=== PATIENT | female | born 2005 | race African-American/Black ===

== ENCOUNTER 2023-01-26 07:20 | Emergency (ER) | payer SELFPAY ==
--- OUTSIDE RECORDS SUMMARY | 2023-01-26 07:23 | XMS REPORT | Continuity of Care Document ---
:2005 Author Organization [facility] t Address [address] [facility] [address] [place] [address] Care Team Providers Name Role Phone Sylvie Moraes MD Primary Care Physician [phone] EVE PEARCE Attending Clinician Unavailable TRAVIS LAUGHLIN Attending Clinician Unavailable Travis Laughlin MD Attending Clinician ADONIS WESLEY Attending Clinician Unavailable MARK SAHNI Attending Clinician Unavailable Babatunde Blackmon MD Attending Clinician Doctor Unassigned, [place] Attending Clinician Unavailable Only, Ang Db Test Attending Clinician Unavailable Luis Daniel Fournier Attending Clinician LUIS DANIEL LEWIS Attending Clinician Unavailable Lilly SORENSEN Attending Clinician Unavailable Lilly Spence Attending Clinician Lucian Henning Attending Clinician LUCIAN AVINA Attending Clinician Unavailable SYLVIE MORAES Attending Clinician Unavailable Cate Holt Attending Clinician Emily Sanders MD Attending Clinician DIEGO FLANAGAN Attending Clinician Unavailable DIEGO FLANAGAN Attending Clinician Unavailable 1, [facility] Sleep Lab Bed Attending Clinician Unavailable Diego Flanagan MD Attending Clinician Only, [facility] Test Attending Clinician Unavailable Nick SANTIAGO Obedmarcos Sultana Attending Clinician EMILY SANDERS Attending Clinician Unavailable Eve Pearce MD Attending Clinician José Miguel Brown MD Attending Clinician Rigo LATIF, Keeley Toussaint Attending Clinician Eugenio LATIF, Rodolfo Attending Clinician RODOLFO KEEN Attending Clinician Unavailable Sylvie Moraes MD Attending Clinician Matt Figueroa PA-C Attending Clinician MTAT FIGUEROA Attending Clinician Unavailable Pob, [facility] Lab Main Attending Clinician Unavailable Lab, [facility] Fam Pob I Attending Clinician Unavailable Visit, [facility] Nurse Attending Clinician Unavailable Duran Rodriguez Attending Clinician DURAN LY Attending Clinician Unavailable EVE PEARCE Admitting Clinician Unavailable Eve Pearce MD Admitting Clinician Payers Payer Name Policy Type Policy Number Effective Date Expiration Date Marcos HAYNES [id number] 2015 HEALTH 00:00:00 Problems Condition Condition Condition Status Onset Resolution Last Treating Co mments Source Name Details Category Date Date Treatment Clinician Date Nexplanon Nexplanon Disease Active Uni vers insertion insertion 8-17 ity of 00:00: [address] ROSENDO ROSENDO Disease Active 2019-04 Univers (obstructi (obstructi 0-24 it y of ve sleep ve sleep 00:00: [place] apnea) apnea) [facility] Anemia Anemia Disease Active 2019-04 Univers 0-07 ity of 00:00: [address] Low HDL Low HDL Disease Active 2019-04 Univers (under 40) (under 40) 0-07 it y of 00:00: [place] [facility] BMI, BMI, Disease Active 2019-04 Univers pediatric pediatric 0-04 ity of > 99% for > 99% [place] 1 [place] Recurrent Recurrent Disease Active 2019-04 Uni vers tonsilliti tonsilliti 0-04 it y of s s 00:00: [place] [facility] Ingrown Ingrown Disease Active 2019-04 Univers right right 0-04 ity of greater greater 00:00: [place] toenail toenail 00 Medical Branch GERD GERD Disease Active 2019-04 Univers (gastroeso (gastroeso 0-04 it y of phageal phageal 00:00: [place] reflux reflux 00 Medical disease) disease) Branch Depo-Prove Depo-Prove Disease Active 2018-04 U deshawn ra ra 0-29 ity of contracept [place]pt [place] ashly status 00 [place] dical Branch Prediabete Prediabete Disease Active U hongers s s 8-03 ity of 00:00: [place] [facility] Family Family Disease Active Univers history of history of 8-03 it y of diabetes diabetes 00:00: [place] mellitus mellitus 00 Medica l in first in first Branch degree degree relative relative Acanthosis Acanthosis Disease Active U deshawn nigricans nigricans 7-21 ity of 00:00: [place] [facility] Morbid Morbid Disease Active 2008-04 Univers obesity obesity 0-14 ity of 00:00: [place] 00 [facility] Allergies, Adverse Reactions, Alerts Allergy Allergy Status Severity Reaction(s) Onset Inactive Treating Comm ents Source Name Type Date Date Clinician NO KNOWN Drug Active Univers ALLERGIE Class ity of S [place] [facility] Social History Social Habit Start Date Stop Date Quantity Comments Source Gender identity Universit y of [facility] Sexual orientation [facility] History of Social 2022-09-08 2022-09-[address] function 00:00:00 00:00:00 Hospital Exposure to 2021-02-28 2021-03-30 Yes University of SARS-CoV-2 (event) 00:00:00 16:42:00 [facility] Alcohol intake 2020-06-03 2020-06-03 0 /d University of 00:00:00 00:00:00 [facility] Tobacco use and 2020-03-07 2020-03-07 Smokeless Universit y of exposure 00:00:00 00:00:00 tobacco non-user [facility] dical Branch Sex Assigned At [birth year] [facility] 00:00:00 00:00:00 Hospital Smoking Status Start Date Stop Date Source Tobacco smoking consumption [facility] unknown Never smoked tobacco [facility] [place] Medications Ordered Filled Start Stop Current Ordering Indication Dosage Frequency Signature Comments Components Source Medication Medication Date Date Medication? Clinician (SIG) Name Name ibuprofen Yes [id number] 800mg Take 1 Univers 800 mg [id number] tablet by ity of tablet 00:00: mouth [place] 00 every 8 Medical (eight) Branch hours as needed for Pain (scale 4-6). keTOROlac 2022- No 10mg Q6H Take 1 Metho di (TORadol) 6-10 06-16 tablet (10 st 10 mg 00:00: 04:59 mg total) Hospit a tablet 00 :00 by mouth l every 6 (six) hours as needed for moderate pain for up to 5 days. amoxicillin 2020-04 Yes [id number] 1{tbl} Take 1 Univers -clavulanat 2-03 tablet by ity of e 875-125 00:00: mouth [place] mg per 00 every 12 Medical tablet (twelve) Branch hours. amoxicillin 2020-04 Yes [id number] 1{tbl} Take 1 Univers -clavulanat 2-03 tablet by ity of e 875-125 00:00: mouth [place] mg per 00 every 12 Medical tablet (twelve) Branch hours. amoxicillin 2020-04 Yes [id number] 1{tbl} Take 1 Univers -clavulanat 2-03 tablet by ity of e 875-125 00:00: mouth [place] mg per 00 every 12 Medical tablet (twelve) Branch hours. cetirizine Yes 10mg Take 10 mg U nivers 10 mg 7-26 by mouth ity of tablet 09:38: daily. [address] cetirizine Yes 10mg Take 10 mg U nivers 10 mg 7-26 by mouth ity of tablet 09:38: daily. [address] cetirizine Yes 10mg Take 10 mg U nivers 10 mg 7-26 by mouth ity of tablet 09:38: daily. [address] cetirizine Yes 10mg Take 10 mg U nivers 10 mg 7-26 by mouth ity of tablet 09:38: daily. [place] [address] Medical Branch famotidine 2020-0 Yes [id number] 20mg Take 1 Univers 20 mg 9-28 tablet by ity of tablet 00:00: mouth 2 [place] (two) Medical times Branch daily. famotidine 2020-0 Yes [id number] 20mg Take 1 Univers 20 mg 9-28 tablet by ity of tablet 00:00: mouth 2 [place] (two) Medical times Branch daily. famotidine 2020-0 Yes [id number] 20mg Take 1 Univers 20 mg 9-28 tablet by ity of tablet 00:00: mouth 2 [place] (two) Medical times Branch daily. famotidine 2020-0 Yes [id number] 20mg Take 1 Univers 20 mg 9-28 tablet by ity of tablet 00:00: mouth 2 [place] (two) Medical times Branch daily. naproxen 2018-04 Yes [id number] 550mg Take 1 Univers sodium 2-06 tablet by ity of (ANAPROX 00:00: mouth 2 [place] DS) 550 mg 00 (two) Medical tablet times Branch daily with meals. naproxen 2018-04 Yes [id number] 550mg Take 1 Univers sodium 2-06 tablet by ity of (ANAPROX 00:00: mouth 2 [place] DS) 550 mg 00 (two) Medical tablet times Branch daily with meals. naproxen 2018-04 Yes [id number] 550mg Take 1 Univers sodium 2-06 tablet by ity of (ANAPROX 00:00: mouth 2 [place] DS) 550 mg 00 (two) Medical tablet times Branch daily with meals. naproxen 2018-04 Yes [id number] 550mg Take 1 Univers sodium 2-06 tablet by ity of (ANAPROX 00:00: mouth 2 [place] DS) 550 mg 00 (two) Medical tablet times Branch daily with meals. Immunizations Ordered Filled Date Status Comments Source Immunization Name Immunization Name Influenza Virus 2019-12-28 Completed Universit y of Vaccine Quad .5 mL 00:00:00 [facility] IM 6+ MO Branch Influenza Virus 2019-12-28 Completed Universit y of Vaccine Quad .5 mL 00:00:00 [facility] IM 6+ MO Branch Influenza Virus 2019-12-28 Completed Universit y of Vaccine Quad .5 mL 00:00:00 [facility] IM 6+ MO Branch (FLUZONE/FLULAVAL/F LUARIX) Influenza Virus 2017-02-18 Completed Universit y of Vaccine Quad IM 3+ 00:00:00 [facility] Influenza Virus 2017-02-18 Completed Universit y of Vaccine Quad IM 3+ 00:00:00 [facility] Influenza Virus 2017-02-18 Completed Universit y of Vaccine Quad IM 3+ 00:00:00 [facility] HPV9 2017-01-29 Completed University of 00:00:00 [facility] HPV9 2017-01-29 Completed University of 00:00:00 [facility] HPV9 2017-01-29 Completed University of 00:00:00 [facility] HPV9 2015-10-19 Completed University of 00:00:00 [facility] HPV9 2015-10-19 Completed University of 00:00:00 [facility] HPV9 2015-10-19 Completed University of 00:00:00 [facility] Meningococcal 2014-02-04 Completed University of Vaccine 00:00:00 [facility] TDAP 2014-02-04 Completed University of 00:00:00 [facility] Influenza Virus 2014-02-04 Completed Universit y of Vaccine Quad IM 3+ 00:00:00 [facility] Meningococcal 2014-02-04 Completed University of Vaccine 00:00:00 [facility] TDAP 2014-02-04 Completed University of 00:00:00 [facility] Influenza Virus 2014-02-04 Completed Universit y of Vaccine Quad IM 3+ 00:00:00 [facility] Meningococcal 2014-02-04 Completed University of Vaccine 00:00:00 [facility] TDAP 2014-02-04 Completed University of 00:00:00 [facility] Influenza Virus 2014-02-04 Completed Universit y of Vaccine Quad IM 3+ 00:00:00 [facility] Influenza Virus 2012-04-02 Completed Universit y of Vaccine 00:00:00 [facility] Influenza Virus 2012-04-02 Completed Universit y of Vaccine 00:00:00 [facility] Influenza Virus 2012-04-02 Completed Universit y of Vaccine 00:00:00 [facility] MMR 2008-01-22 Completed University of 00:00:00 [facility] Varicella 2008-01-22 Completed University of (varivax)(chicken 00:00:00 [facility] edical pox) Branch MMR 2008-01-22 Completed University of 00:00:00 [facility] Varicella 2008-01-22 Completed University of (varivax)(chicken 00:00:00 [place] M edical pox) Branch MMR 2008-01-22 Completed University of 00:00:00 [facility] Varicella 2008-01-22 Completed University of (varivax)(chicken 00:00:00 [place] M edical pox) Branch DTAP 2007-01-30 Completed University of 00:00:00 [facility] Influenza Virus 2007-01-30 Completed Universit y of Vaccine 00:00:00 [facility] Polio (IPV/OPV) 2007-01-30 Completed Universit y of 00:00:00 [facility] DTAP 2007-01-30 Completed University of 00:00:00 [facility] Influenza Virus 2007-01-30 Completed Universit y of Vaccine 00:00:00 [facility] Polio (IPV/OPV) 2007-01-30 Completed Universit y of 00:00:00 [facility] DTAP 2007-01-30 Completed University of 00:00:00 [facility] Influenza Virus 2007-01-30 Completed Universit y of Vaccine 00:00:00 [facility] Polio (IPV/OPV) 2007-01-30 Completed Universit y of 00:00:00 [facility] HEPATITIS A 2006-02-01 Completed University of 00:00:00 [facility] Influenza Virus 2006-02-01 Completed Universit y of Vaccine 00:00:00 [facility] HEPATITIS A 2006-02-01 Completed University of 00:00:00 [facility] Influenza Virus 2006-02-01 Completed Universit y of Vaccine 00:00:00 [facility] HEPATITIS A 2006-02-01 Completed University of 00:00:00 [facility] Influenza Virus 2006-02-01 Completed Universit y of Vaccine 00:00:00 [facility] DTAP 2005-07-13 Completed University of 00:00:00 [facility] DTAP 2005-07-13 Completed University of 00:00:00 [facility] DTAP 2005-07-13 Completed University of 00:00:00 [facility] Influenza Virus 2005-02-15 Completed Universit y of Vaccine 00:00:00 [facility] Influenza Virus 2005-02-15 Completed Universit y of Vaccine 00:00:00 [facility] Influenza Virus 2005-02-15 Completed Universit y of Vaccine 00:00:00 [facility] HEPATITIS A 2005-01-15 Completed University of 00:00:00 [facility] Pneumococcal 7 2005-01-15 Completed University of Conjugate, PCV7 00:00:00 [facility] ical (Prevnar7) Branch HEPATITIS A 2005-01-15 Completed University of 00:00:00 [facility] Pneumococcal 7 2005-01-15 Completed University of Conjugate, PCV7 00:00:00 [facility] (Prevnar7) Branch HEPATITIS A 2005-01-15 Completed University of 00:00:00 [facility] Pneumococcal 7 2005-01-15 Completed University of Conjugate, PCV7 00:00:00 [facility] (Prevnar7) Branch DTAP 2004-05-24 Completed University of 00:00:00 [facility] DTAP 2004-05-24 Completed University of 00:00:00 [facility] DTAP 2004-05-24 Completed University of 00:00:00 [facility] Influenza Virus 2004-04-05 Completed Universit y of Vaccine 00:00:00 [facility] Influenza Virus 2004-04-05 Completed Universit y of Vaccine 00:00:00 [facility] Influenza Virus 2004-04-05 Completed Universit y of Vaccine 00:00:00 [facility] Influenza Virus 2004-03-01 Completed Universit y of Vaccine 00:00:00 [facility] Influenza Virus 2004-03-01 Completed Universit y of Vaccine 00:00:00 [facility] Influenza Virus 2004-03-01 Completed Universit y of Vaccine 00:00:00 [facility] HIB 4 Dose Schedule 2004-01-06 Completed Unive rsity of 00:00:00 [facility] MMR 2004-01-06 Completed University of 00:00:00 [facility] Varicella 2004-01-06 Completed University of (varivax)(chicken 00:00:00 [place] M edical pox) Branch HIB 4 Dose Schedule 2004-01-06 Completed Unive rsity of 00:00:00 [facility] MMR 2004-01-06 Completed University of 00:00:00 [facility] Varicella 2004-01-06 Completed University of (varivax)(chicken 00:00:00 [place] M edical pox) Branch HIB 4 Dose Schedule 2004-01-06 Completed Unive rsity of 00:00:00 [facility] MMR 2004-01-06 Completed University of 00:00:00 [facility] Varicella 2004-01-06 Completed University of (varivax)(chicken 00:00:00 [place] M edical pox) Branch Polio (IPV/OPV) 2003 Completed Universit y of 00:00:00 [facility] Polio (IPV/OPV) 2003 Completed Universit y of 00:00:00 [facility] Polio (IPV/OPV) 2003 Completed Universit y of 00:00:00 [facility] HIB 4 Dose Schedule 2003 Completed Unive rsity of 00:00:00 [facility] Hep B, Adol or Pedi 2003 Completed Unive rsity of Dosage 00:00:00 [facility] HIB 4 Dose Schedule 2003 Completed Unive rsity of 00:00:00 [facility] Hep B, Adol or Pedi 2003 Completed Unive rsity of Dosage 00:00:00 [facility] HIB 4 Dose Schedule 2003 Completed Unive rsity of 00:00:00 [facility] Hep B, Adol or Pedi 2003 Completed Unive rsity of Dosage 00:00:00 [facility] DTAP 2003 Completed University of 00:00:00 [facility] HIB 4 Dose Schedule 2003 Completed Unive rsity of 00:00:00 [facility] Polio (IPV/OPV) 2003 Completed Universit y of 00:00:00 [facility] Pneumococcal 7 2003 Completed University of Conjugate, PCV7 00:00:00 [place] Med ical (Prevnar7) Branch DTAP 2003 Completed University of 00:00:00 [facility] HIB 4 Dose Schedule 2003 Completed Unive rsity of 00:00:00 [facility] Polio (IPV/OPV) 2003 Completed Universit y of 00:00:00 [facility] Pneumococcal 7 2003 Completed University of Conjugate, PCV7 00:00:00 [place] Med ical (Prevnar7) Branch DTAP 2003 Completed University of 00:00:00 [facility] HIB 4 Dose Schedule 2003 Completed Unive rsity of 00:00:00 [facility] Polio (IPV/OPV) 2003 Completed Universit y of 00:00:00 [facility] Pneumococcal 7 2003 Completed University of Conjugate, PCV7 00:00:00 [place] Med ical (Prevnar7) Branch DTAP 2003 Completed University of 00:00:00 [facility] HIB 4 Dose Schedule 2003 Completed Unive rsity of 00:00:00 [facility] Hep B, Adol or Pedi 2003 Completed Unive rsity of Dosage 00:00:00 [facility] Polio (IPV/OPV) 2003 Completed Universit y of 00:00:00 [facility] Pneumococcal 7 2003 Completed University of Conjugate, PCV7 00:00:00 [place] [facility] ical (Prevnar7) Branch DTAP 2003 Completed University of 00:00:00 [facility] HIB 4 Dose Schedule 2003 Completed Unive rsity of 00:00:00 [facility] Hep B, Adol or Pedi 2003 Completed Unive rsity of Dosage 00:00:00 [facility] Polio (IPV/OPV) 2003 Completed Universit y of 00:00:00 [facility] Pneumococcal 7 2003 Completed University of Conjugate, PCV7 00:00:00 [place] [facility] ical (Prevnar7) Branch DTAP 2003 Completed University of 00:00:00 [facility] HIB 4 Dose Schedule 2003 Completed Unive rsity of 00:00:00 [facility] Hep B, Adol or Pedi 2003 Completed Unive rsity of Dosage 00:00:00 [facility] Polio (IPV/OPV) 2003 Completed Universit y of 00:00:00 [facility] Pneumococcal 7 2003 Completed University of Conjugate, PCV7 00:00:00 [place] Med ical (Prevnar7) Branch Hep B, Adol or Pedi 2003 Completed Unive rsity of Dosage 00:00:00 [facility] Hep B, Adol or Pedi 2003 Completed Unive rsity of Dosage 00:00:00 [facility] Hep B, Adol or Pedi 2003 Completed Unive rsity of Dosage 00:00:00 [facility] DTAP Unknown Completed [facility] [place] DTAP Unknown Completed [facility] [place] DTAP Unknown Completed [facility] [place] DTAP Unknown Completed [facility] [place] DTAP Unknown Completed [facility] [place] HIB 4 Dose Schedule Unknown [facility] D[facility] Dose Schedule Unknown [facility] 4 Dose Schedule Unknown Completed Unive rsity [facility] HEPATITIS A Unknown Completed [facility] [place] HEPATITIS A Unknown Completed [facility] [place] Hep B, Adol or Pedi Unknown Completed Unive rsity of Dosage [facility] Hep B, Adol or Pedi Unknown Completed Unive rsity of Dosage [facility] Hep B, Adol or Pedi Unknown Completed Unive rsity of Dosage [facility] Influenza Virus Unknown Completed Universit y of Vaccine [facility] Influenza Virus Unknown Completed Universit y of Vaccine [facility] Influenza Virus Unknown Completed Universit y of Vaccine [facility] Influenza Virus Unknown Completed Universit y of Vaccine [facility] Influenza Virus Unknown Completed Universit y of [facility] Influenza Virus Unknown Completed Universit y of [facility] Meningococcal Unknown Completed [facility] MMR Unknown Completed [facility] [place] MMR Unknown Completed [facility] [place] Polio (IPV/OPV) Unknown Completed Universit y [facility] Polio (IPV/OPV) Unknown Completed Universit y [facility] Polio (IPV/OPV) Unknown Completed Universit [facility] Polio (IPV/OPV) Unknown [facility] TDAP Unknown Completed [facility] [place] Varicella Unknown Completed University of (varivax)(chicken [place] M edical pox) Branch Varicella Unknown Completed University of (varivax)(chicken [place] M edical pox) Branch Influenza Virus Unknown Completed Universit y of Vaccine Quad IM 3+ [facility] Pneumococcal 7 Unknown Completed University of Conjugate, PCV7 [facility] ical (Prevnar7) Branch Pneumococcal 7 Unknown Completed University of Conjugate, PCV7 [facility] ical (Prevnar7) Branch Pneumococcal 7 Unknown Completed University of Conjugate, PCV7 [facility] ical (Prevnar7) Branch HPV9 Unknown Completed [facility] [place] HPV9 Unknown Completed [facility] [place] Influenza Virus Unknown Completed Universit y of Vaccine Quad IM 3+ [facility] Branch Influenza Virus Unknown Completed Universit y of Vaccine Quad .5 mL [facility] IM 6+ MO Branch (FLUZONE/FLULAVAL/F LUARIX) Vital Signs Vital Name Observation Time Observation Value Comments Source Systolic blood 2022-12-05 00:34:00 125 mm[Hg] [facility] Diastolic blood 2022-12-05 00:34:00 101 mm[Hg] [facility] 2022-12-05 00:34:00 83 /min [facility] Body temperature 2022-12-05 00:34:00 36.94 Alie [facility] Res[facility] rate 2022-12-05 00:34:00 18 /min [facility] Body height 2022-12-05 00:34:00 160 cm [facility] Body weight 2022-12-05 00:34:00 133.358 kg [facility] BMI 2022-12-05 00:34:00 52.08 kg/m2 [facility] Oxygen saturation in 2022-12-05 00:34:00 99 /min University Arterial blood by [facility] Pulse oximetry Branch Systolic blood 2022-09-08 17:33:00 152 mm[Hg] Method [facility] pressure Diastolic blood 2022-09-08 17:33:00 68 mm[Hg] [facility] pressure Heart rate 2022-09-08 17:33:00 95 /min [facility] Body temperature 2022-09-08 17:33:00 36.61 Alie [facility] Respiratory rate 2022-09-08 17:33:00 16 /min [facility] Body height 2022-09-08 17:33:00 157.5 cm [facility] Body weight 2022-09-08 17:33:00 131.543 kg [facility] BMI 2022-09-08 17:33:00 53.04 kg/m2 [facility] Oxygen saturation in 2022-09-08 17:33:00 99 /min [facility] Arterial blood by Pulse oximetry Procedures Procedure Date / Time Performing Clinician Source Performed ASSIGNMENT OF BENEFITS 2022-12-05 00:57:24 Doctor Unassigned, [facility] [place] [facility] NOTICE OF PRIVACY 2022-12-05 00:22:03 Doctor Unassigned, [facility] PRACTICES [facility] CONSENT/REFUSAL FOR 2022-12-05 00:20:54 Doctor Unassigned, [facility] DIAGNOSIS AND TREATMENT [facility] XR SHOULDER 2+ VW LEFT 2022-09-08 19:25:00 Sierra Brooks, [facility] CHEST 2 VW 2022-09-08 19:24:32 Neymar[facility] HUMERUS LEFT 2022-09-08 19:24:00 Sierra Brooks, [facility] MEDICATION CORRESPONDENCE 2021-06-20 05:01:00 Doctor Kraig, [facility] Plan of Care Planned Activity Planned Date Details Comments Source Future Scheduled 2023-01-13 [facility] Test 20:35:59 Chlamydia trachomatis (procedure) [code = 389312522] Future Scheduled 2023-01-13 Hepatitis C screening [facility] Test 20:35:59 (procedure) [code = 715806552] Future Scheduled 2023-01-13 COVID-19 VACCINE (3 - [facility] Test 20:35:59 season) [code = COVID-19 VACCINE (3 - season)] Future Scheduled 2023-01-13 INFLUENZA VACCINE [facility] Test 20:35:59 (#1) [code = INFLUENZA VACCINE (#1)] Future Scheduled 2023-01-13 RSV VACCINES > 60 YR Met [facility] Hospital Test 20:35:59 (1 - 1-dose 60+ series) [code = RSV VACCINES > 60 YR (1 - 1-dose 60+ series)] Encounters Start End Encounter Admission Attending Care Care Encounter Source Date/Time Date/Time Type Type Clinicians Facility Department ID 2021-01-27 Outpatient [facility] [id number] Univers 23:39[facility] 2022-12-04 2022-12-04 Emergency X ADIN LAUGHLIN ERT [id number] Univers 19:38:00 20:30:00 TRAVIS belle [facility] 2022-12-04 2022-12-04 Emergency Truman [facility] 1.2.100.988 [id number] Univers 19:38:00 20:30:00 Travis Marcos SHEILA 350.1.13.10 ity of [place] 4.2.7.2.686 [facility] [id number] [facility] 084 Branch 2022-11-19 2022-11-19 Outpatient R LUPILLOADONIS [facility] [id number] Univers 09:00:00 09:00:00 ity [facility] 2022-09-24 2022-09-24 Outpatient R MARK SAHNI [facility] [id number] Univers 08:30:00 08:30:00 ity [facility] 2022-09-08 2022-09-08 Emergency NeymarBabatunde 1.2.840.1 [id number] Methodi 12:39:00 16:47:[address] 3.430.2.7 Hospit a .3.301380 l .8 2022-09-08 2022-09-08 Emergency NEYMAR, BABATUNDE [facility] 064 [id number] 100882 [place] 00:00:00 00:00:[address] 2022-09-08 2022-09-08 Travel 1.2.840.1 1.2.375.681 [id number] Methodi 00:00:00 00:00:[address] 3.430.2.7 0.2.7.3.698 [facility] .[facility].527270 084.8 l .8 2021-06-20 2021-06-20 Orders Doctor MARILEE 1.2.840.114 [id number] Univers 00:00:00 00:00:00 Only Unassigned, ALONSO 350.1.13.10 ity of [facility] 4.2.7.2.686 [facility] [phone] [facility] 009 Branch 2021-03-30 2021-03-30 Laboratory Only, Ang Db Test [facility] 1.2.8 40.114 [id number] Univers 17:00:00 17:01:39 Only Green, Luis Daniel [facility] 350.1.13.10 ity of [place] 4.2.7.2.686 Rodney as ARUN?BLEA [phone] Me [address] MEDICAL OFFICE [facility] 2021-03-30 2021-03-30 Outpatient R ERVIN [facility] [id number] Univers 17:00:00 17:00:00 LUIS DANIEL ity [facility] 2021-03-22 2021-03-22 Laboratory Only, Ang Db Test [facility] 1.2.8 40.114 [id number] Univers 15:30:00 15:45:00 Only Ervin [facility] 350.1.13.10 ity [facility] 4.2.7.2.686 Rodney as ARUN?BLEA [phone] Me [address] OFFICE [facility] 2021-03-22 2021-03-22 Outpatient R ERVIN [facility] [id number] Univers 15:30:00 15:30:00 LUIS DANIEL ity [facility] 2021-03-03 2021-03-03 Emergency X Lilly SORENSEN [facility] ERT [id number] Univers 14:17:00 15:42:00 ity [facility] 2021-03-03 2021-03-03 Emergency Lilly Sorensen [facility] 1.2.840.114 [id number] Univers 14:17:00 15:42:00 Carmen EWING 350.1.13.10 i ty [facility] 4.2.7.2.[place] [id number] [address] 2021-03-03 2021-03-03 Emergency X Lilly SORENSEN [facility] ERT [id number] Univers 14:17:00 15:42:00 ity [facility] 2020-11-15 2020-11-15 Office Fabrice [facility] 1.2.752.372 [id number] Univers 14:32:20 15:31:39 Visit Lucian Hadley FUNCTIONAL TESTER 350.1.13.10 it y [facility] 4.2.7.2.686 Rodney as MATERNAL [phone] Med ical & CHILD 107 [facility] 2020-11-15 2020-11-15 Outpatient R FABRICE [facility] [id number] Univers 14:30:00 14:30:00 LUCIAN belle of [facility] 2020-11-15 2020-11-15 Orders Doctor MARILEE 1.2.840.114 [id number] Univers 00:00:00 00:00:00 Only Unassigned, ALONSO 350.1.13.10 ity of [facility] 4.2.7.2.686 Rodney as [phone] [address] 2020-10-26 2020-10-26 Telephone [facility] 1.2.840.114 [id number] Univers 00:00:00 00:00:00 Lucian N FUNCTIONAL TESTER 350.1.13.[address] [facility] 4.2.7.2.686 Rodney as MATERNAL [phone] [facility] ical & CHILD [address] [place] [address] 2020-10-24 2020-10-24 Office [facility] 1.2.075.210 [id number] Univers 09:00:27 10:12:22 Visit Lucian N FUNCTIONAL TESTER 350.1.13.10 it y of REG[place]AL 4.2.7.2.686 Rodney as MATERNAL [phone] [facility] CHILD [address] [place] [address] 2020-10-24 2020-10-24 Outpatient R FABRICE [facility] [id number] Univers 09:15:00 09:15:00 LUCIAN belle [facility] 2020-10-24 2020-10-24 Orders Doctor HUNT 1.2.840.114 [id number] Univers 00:00:00 00:00:00 Only Unassigned, ALONSO 350.1.13.10 ity of [facility] 4.2.7.2.686 Rodney as [phone] [address] 2020-10-03 2020-10-03 Outpatient Brittany MORAES [facility] [id number] Univers 14:30:00 14:30:00 WONDIFUL ity o f [facility] 2020-09-09 2020-09-09 Outpatient Brittany MORAES [facility] [id number] Univers 11:15:00 11:15:00 WONDIFUL ity o f [facility] 2020-08-30 2020-08-30 Orders Doctor MARILEE 1.2.840.114 [id number] Univers 00:00:00 00:00:00 Only Unassigned, ALONSO 350.1.13.10 ity of [facility] 4.2.7.2.686 Rodney as [phone] [facility] 009 Branch 2020-08-30 2020-08-30 Cate Mora [facility] 1.2.840.114 [id number] Univers 00:00:00 00:00:00 FUNCTIONAL TESTER 350.1.13.10 it y of REGIONAL 4.2.7.2.686 Rodney as MATERNAL [phone] Med ical & CHILD 107 [facility] 2020-08-26 2020-08-26 Telephone [facility] 1.2.840.114 [id number] Univers 00:00:00 00:00:00 Emily MULTISPEC 350.1.13.10 ity [place]2.[place] [phone] [address] [facility] 2020-08-22 2020-08-22 Telephone [facility] 1.2.840.114 [id number] Univers 00:00:00 00:00:00 Emily MULTISPEC 350.1.13.10 it[place]2.[place] [phone] [address] [facility] 2020-08-22 2020-08-22 Orders Doctor MARILEE 1.2.840.114 [id number] Univers 00:00:00 00:00:00 Only Unassigned, ALONSO 350.1.13.10 ity of [facility] 4.2.7.2.686 Rodney as [phone] [place] [address] Branch 2020-08-22 2020-08-22 Patient [facility] 1.2.840.114 [id number] Univers 00:00:00 00:00:00 Secure Msg Emily MULTISPEC 350.1.13.10 ity [place] [phone] [facility] AND [address] [facility] 2020-08-13 2020-08-13 Outpatient R DIEGO FLANAGAN [facility] [id number] Univers 19:30:00 19:30:00 DIEGO FLANAGAN ity [facility] 2020-08-13 2020-08-13 Orders Sultana [facility] 1.2.840.114 [id number] Univers 00:00:00 00:00:00 Only Emily MATA 350.1.13.10 ity of [place].2.[place] [id number] [facility] 152 Branch 2020-08-12 2020-08-12 Tattooer 1, [facility] Sleep Lab Bed [facility] 1. 2.840.114 [id number] Univers 13:19:09 15:49:09 Visit Diego Flanagan 350.1.13. 10 ity of [place].2.686 [place] [id number] [facility] 193 Branch 2020-08-11 2020-08-11 Laboratory Only, [facility] Test [facility] 1.2.840. 114 [id number] Univers 15:19:51 15:34:51 Only Diego Flanagan 350.1.13. 10 ity of [place].2.686 [place] [id number] [facility] 353 Branch 2020-08-11 2020-08-11 Outpatient R [facility] [id number] Univers 15:30:00 15:30:00 ity of [facility] 2020-07-06 2020-07-06 Telephone BRITTANY Sanders 1.2.840.114 [id number] Univers 00:00:00 00:00:00 Emily [facility] 350.1.13.10 i ty of [facility] 4.2.7.2.686 [place] [id number] [facility] 085 Branch 2020-07-02 2020-07-02 Outpatient R DIEGO FLANAGAN [facility] [id number] Univers 19:30:00 19:30:00 DIEGO FLANAGAN itantoni [facility] 2020-07-01 2020-07-01 Outpatient R DIEGO FLANAGAN [facility] [id number] Univers 19:30:00 19:30:00 DIEGO FLANAGAN itantoni of [facility] 2020-07-01 2020-07-01 Tattooer 1, [facility] Sleep Lab Bed [facility] 1. 2.840.114 [id number] Univers 14:26:47 16:56:47 Visit Isaiah Flanaganadalid Sulaiman [place] 350.1.13. 10 ity [facility] 4.2.7.2.686 [facility] [phone] [facility] 193 Branch 2020-06-28 2020-06-28 Laboratory Only, [facility] Test [facility] 1.2.840. 114 [id number] Univers 15:55:43 16:10:43 Only Diego Flanagan 350.1.13. 10 ity of [place] 4.2.7.2.686 [facility] [phone] [facility] 353 Branch 2020-06-28 2020-06-28 Outpatient R DIEGO FLANAGAN [facility] [id number] Univers 15:30:00 15:30:00 DIEGO FLANAGAN ity of [facility] 2020-06-28 2020-06-28 Outpatient R [facility] [id number] Univers 08:15:00 08:15:00 ity of [facility] 2020-06-28 2020-06-28 Orders Doctor MARILEE 1.2.840.114 [id number] Univers 00:00:00 00:00:00 Only Unassigned, ALONSO 350.1.13.10 ity of [facility] 4.2.7.2.686 Rodney as [phone] [facility] 009 Branch 2020-06-21 2020-06-21 Patient Nick [facility] 1.2.840.114 [id number] Univers 00:00:00 00:00:00 Outreach Obed HERNANDEZ 350.1.13.10 i ty of [facility] 4.2.7.2.686 [place] [id number] Wa dical 388 Branch 2020-06-03 2020-06-03 Office Sultana [facility] 1.2.840.114 [id number] Univers 09:36:57 10:36:57 Visit Emily [facility] 350.1.13.10 ity of [place] 4.2.7.2.686 [facility] [id number] [facility] 152 Branch 2020-06-03 2020-06-03 Outpatient Brittany SANDERS [facility] [id number] Univers 10:00:00 10:00:00 EMILY ity of [facility] 2020-03-17 2020-03-17 Telephone [facility] 1.2.840.114 [id number] Univers 00:00:00 00:00:00 Eve WILCOX 350.1.13.10 i ty of [facility] [place].2.[place] [phone] [facility] 144 [place] 2020-03-11 2020-03-11 [facility] Tammie Pearce 1.2.267.209 [id number] Univers 05:48:00 12:00:00 Encounter Eve An 350.1.13.10 ity of [facility] 4.2.7.2.686 Rodney as [phone] [facility] 104 Branch 2020-03-11 2020-03-11 Anesthesia José Miguel Brown Tammie 1.2.840.11 [id number] Univers 08:40:00 10:14:00 Keeley Sierra 350.1.1 3.10 ity of [facility] 4.2.7.2.686 Rodney as [phone] [facility] 103 [place] 2020-03-11 2020-03-11 Telephone [facility] 1.2.840.114 [id number] Univers 00:00:00 00:00:00 Eve WILCOX 350.1.13.10 i ty of [facility] [place].2.[place] [id number] [facility] 144 [place] 2020-03-09 2020-03-09 Laboratory Only, Adc Test [facility] 1.2.840. 114 [id number] Univers 15:42:25 15:57:25 Only Rodolfo Keen 350.1.13.10 ity of [place] 4.2.7.2.686 [facility] [phone] [facility] 353 Branch 2020-03-09 2020-03-09 Outpatient R EUGENIO [facility] [id number] Univers 15:45:00 15:45:00 RODOLFO belle [facility] 2020-03-09 2020-03-09 Orders Doctor HUNT 1.2.840.114 [id number] Univers 00:00:00 00:00:00 Only Unassigned, ALONSO 350.1.13.10 ity of [facility] 4.2.7.2.686 Rodney as [id number] [facility] 009 Branch 2020-02-01 2020-02-01 [facility] [id number] Univers 11:00:00 11:00:00 WONDIFUL ity o f [facility] 2020-01-23 2020-01-23 [facility] 1.2.840.114 [id number] Univers 00:00:00 00:00:00 Management Wondiful A Health 350.1.13.10 ity [facility] 4.2.7.2.686 Rodney as Professio [phone] [place] dic[address] Office Building One 2020-01-15 2020-01-15 [facility] 1.2.840.114 [id number] Univers 12:59:03 13:29:03 Visit Matt WILCOX 350.1.13.10 i ty [facility] [place].7.2.[place] [id number] [facility] [address] [place] 2020-01-15 2020-01-15 Outpatient Brittany FIGUEROA [facility] [id number] Univers 13:00:00 13:00:00 MATT belle [facility] 2020-01-13 2020-01-13 Outpatient R DIEGO FLANAGAN [facility] [id number] Univers 20:00:00 20:00:00 DIEGO FLANAGAN [facility] 2020-01-13 2020-01-13 Tattooer 1, [facility] Sleep Lab Bed [facility] 1. 2.840.114 [id number] Univers 13:46:21 16:16:21 Visit Diego Flanagan 350.1.13. 10 ity [facility] 4.2.7.2.686 [facility] [id number] [facility] 193 Branch 2020-01-13 2020-01-13 Orders Dimitry [facility] 1.2.840.114 [id number] Univers 00:00:00 00:00:00 Only Wondiful A [place] 350.1.13.10 ity of [place]2.[place] Profess[place] [phone] Wa dical nal 044 [facility] 2020-01-11 2020-01-11 Laboratory Only, Adc Test [facility] 1.2.840. 114 [id number] Univers 08:51:58 09:06:58 Only Diego Flanagan T [place] 350.1.13. 10 ity of [place] 4.2.7.2.686 [facility] [phone] [facility] 353 [place] 2020-01-11 2020-01-11 Outpatient R [facility] [id number] Univers 08:45:00 08:45:00 ity of [facility] 2020-01-11 2020-01-11 Orders Doctor HUNT 1.2.840.114 [id number] Univers 00:00:00 00:00:00 Only Unassigned, ALONSO 350.1.13.10 ity of [facility] 4.2.7.2.686 Rodney as [phone] [facility] 009 Branch 2020-01-08 2020-01-08 Telephone Dimitry [facility] 1.2.840.114 [id number] Univers 00:00:00 00:00:00 Wondiful A Health 350.1.13.10 ity of [place] 4.2.7.2.686 Rodney as Professio [phone] Wa dical nal 044 [address] Office [address] [facility] 2020-01-06 2020-01-06 Case Dimitry [facility] 1.2.840.114 [id number] Univers 00:00:00 00:00:00 Management Wondiful A Health 350.1.13.10 ity of [place] 4.2.7.2.686 Rodney as Professio [phone] Wa dical nal 044 [address] Office [address] One 2019-12-28 2019-12-28 Tattooer Deepti, Adc Lab Main [facility] 1.2.8 40.114 [id number] Univers 16:08:37 16:23:37 Visit Sylvie Moraes [place] 350.1.13. 10 ity of [place] Profess[place] [phone] Wa ruchi [facility] 353 [facility] 2019-12-28 2019-12-28 Tattooer Lab, Adc Fam Pob I [facility] 1.2. 840.114 [id number] Univers 15:48:02 16:08:17 Visit Sylvie Moraes Health 350.1.13.1 0 ity of [place] 4.2.7.2.686 Rodney as Professio [phone] [facility] 044 [place] Office [facility] 2019-12-28 2019-12-28 Office Dimitry [facility] 1.2.840.114 [id number] Univers 14:32:32 15:26:34 Visit Sylvie Hernandez [facility] 350.1.13.10 ity of [place] 4.2.7.2.686 Rodney as Professio [phone] [facility] 044 [place] Office [facility] 2019-12-28 2019-12-28 Outpatient R DIMITRY [facility] [id number] Univers 14:30:00 14:30:00 WONDIFUL ity o f [facility] 2019-12-28 2019-12-28 Orders Doctor MARILEE 1.2.840.114 [id number] Univers 00:00:00 00:00:00 Only Unassigned, ALONSO 350.1.13.10 ity of [facility] 4.2.7.2.686 Rodney as [phone] [address] 2019-11-20 2019-11-20 Outpatient R [facility] [id number] Univers 16:00:00 16:00:00 ity of [facility] 2019-08-28 2019-09-10 [facility] 1.2 .840.114 [id number] Univers 15:58:30 14:38:53 Visit Duran Ly FUNCTIONAL TESTER 350.1.13.[address] [facility] 4.2.7.2.686 Rodney as MATERNAL [phone] Med ical & CHILD [address] [place] [address] 2019-08-28 2019-08-28 Outpatient R [facility] [id number] Univers 16:00:00 16:00:00 ity of [facility] 2019-08-27 2019-08-27 Telephone Cate Wesley [facility] 1.2.840.114 [id number] Univers 00:00:00 00:00:00 FUNCTIONAL TESTER 350.1.13.10 it y of REGIONAL 4.2.7.2.686 Rodney as MATERNAL [phone] [facility] ical & CHILD [address] [place] [address] 2019-06-05 2019-06-05 [facility] 1.2 .840.114 [id number] Univers 16:13:36 16:58:53 Visit Duran Ly FUNCTIONAL TESTER 350.1.13.10 ity of REGIONAL 4.2.7.2.686 Rodney as MATERNAL [phone] [facility] ical & CHILD [address] [place] [address] 2019-06-05 2019-06-05 Outpatient R MALACHI [facility] [id number] Univers 16:00:00 16:00:00 DURAN latify o f [facility] 2019-06-05 2019-06-05 Orders Doctor MARILEE 1.2.840.114 [id number] Univers 00:00:00 00:00:00 Only Unassigned, ALONSO 350.1.13.10 ity of [place] [facility] 4.2.7.2.686 Rodney as [phone] [address] 2019-06-04 2019-06-04 Telephone Malachi [facility] 1.2.495.380 [id number] Univers 00:00:00 00:00:00 Duran Soto FUNCTIONAL TESTER 350.1.13.10 ity of REGIONAL 4.2.7.2.686 Rodney as MATERNAL [phone] [facility] & CHILD [address] [place] [address] Results This patient has no known results.
[2023-01-26 09:06] LABS: SARS-CoV-2 Antigen Rapid Res Negative (Negative)
--- NOTE | 2023-01-26 09:10 | EDPHYS ---
Physician Documentation [facility] Name: Nancy Love Age: 18 yrs Sex: Female : 2005 Arrival Date: 01/26/2023 Time: 07:20 Bed 10 Private MD: ED Physician Brett Stevens HPI: 01/26 07:48 This 18 yrs old Black Female presents to ER via Ambulatory with complaints of Bloody ec2 Stools, Sore Throat, Headache, Stuffy nose. 07:48 Patient arrives today due to concern for URI signs symptoms along with bright red ec2 bloody stools. Patient reports that for the past 2 days she been having cough and cold symptoms, states that she feels congestion. Patient reports no difficulty breathing, no throat pain, no abdominal pain, no nausea or vomiting. Patient reports that she noted some bloody stools this morning which will prompted evaluation today. Patient reports no history of bloody stools, denies any pain with defecation, denies any lightheadedness, shortness of breath, chest pain. Patient reports that she does not feel any lumps or bumps in the rectum. Patient reports no similar history of bloody stools. Patient reports no medical problems.. 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 - Social history:: Smoking status: Patient denies any tobacco usage or history of. ROS: 07:48 Constitutional: as per hpi ec2 Exam: 07:48 Constitutional: GEN: NAD Head: atraumatic Eyes: EOMI Ears: External ears are ec2 normal. CV: regular rate LUNGS: no respiratory distress ABD: non-distended, soft, nontender, no guarding, not rigid : Performed under nurse supervision, obvious nonthrombosed hemorrhoid that is soft with no active bleeding present SKIN: no evidence of rashes MSK: no evidence of trauma NEURO: moves all extremities equally Vital Signs: 07:31 BP 140 / 90; Pulse 84; Resp 17; Temp 97.9; Pulse Ox 98% ; Weight 127.01 kg; Height 5 7 ft. 3 in. ; Pain 7/10; 07:31 Body Mass Index 49.60 (127.01 kg, 160.02 cm) - Percentile 99.1 % [facility] 07:31 Pain Scale: Adult 7 MDM: 07:36 Patient medically screened. ec2 07:48 ED course: Patient arrives today due to concern for URI symptoms. Examination ec2 remarkable for reassuring abdominal examination, nonthrombosed soft hemorrhoid on the rectum. Will obtain viral swabs, initially considered obtaining lab work, however patient has reassuring vital signs and obvious source of rectal bleeding which is consistent with the patient's story. Accordingly I do not feel she requires more aggressive management from the rectal bleeding standpoint. I will send viral swabs to assess for COVID and flu. Ultimately patient will be appropriate for discharge home. . 09:08 Data reviewed: vital signs. ED course: Patient negative for flu and COVID. On ec2 reassessment patient remains well-appearing in no acute distress. Presentation consistent with viral process and hemorrhoids. Will discharge home, return precautions given. . 01/26 07:41 Order name: Flu; Complete Time: 09:08 jl7 01/26 07:41 Order name: SARS RAPID; Complete Time: 09:08 jl7 Administered Medications: No medications were administered Disposition Summary: 01/26/23 09:08 Discharge Ordered Notes: Location: Home ec2 Condition: Stable ec2 Diagnosis - Viral Process ec2 - Unspecified hemorrhoids ec2 Discharge Instructions: - Discharge Summary Sheet jl7 - Hemorrhoids ec2 - Viral Illness, Adult ec2 Forms: - Work release form jl7 - Medication Reconciliation Form ec2 - Thank You Letter ec2 - Antibiotic Education ec2 - Prescription Opioid Use ec2 - Patient Portal Instructions ec2 - Leadership Thank You Letter ec2 Prescriptions: - Tessalon Perles 100 mg Oral Capsule - take 1 capsule ORAL route every 8 hours As needed; 15 capsule; Refills: 0, ec2 Product Selection Permitted Signatures: Dispatcher [employer] Nena Carpenter RN RN jl7 Brett Stevens MD MD ec2 Corrections: (The following items were deleted from the chart) 07:51 07:35 IV Saline Lock ordered. jl7 jl7 07:51 07:35 Labs collected and sent ordered. jl7 jl7 07:55 07:37 Test, Urine+UC.LAB.BRZ ordered. EDMS EDMS 07:56 07:36 CBC+H.LAB.BRZ ordered. EDMS EDMS 07:56 07:36 COMPREHENSIVE METABOLIC PANEL+C.LAB.BRZ ordered. EDMS EDMS 07:56 07:36 LIPASE+C.LAB.BRZ ordered. EDMS EDMS 07:56 07:37 Urinalysis+U.LAB.BRZ ordered. EDMS EDMS
--- NOTE | 2023-01-26 09:10 | ER ---
Nurse's Notes [facility] Name: Nancy Love Age: 18 yrs Sex: Female : 2005 Arrival Date: 01/26/2023 Time: 07:20 Bed 10 Private MD: Diagnosis: Viral Process;Unspecified hemorrhoids Presentation: 01/26 07:31 Chief complaint: Patient states: Bloody stools x 2 days, denies abdominal pain, last jl7 meal last night 01/25/23. Sinus pressure, headache, sore throat x 2 days, denies fever. Coronavirus screen: Client presents with at least one sign or symptom that may indicate coronavirus-19. Ebola Screen: No symptoms or risks identified at this time. Initial Sepsis Screen: Does the patient meet any 2 criteria? No. Patient's initial sepsis screen is negative. Does the patient have a suspected source of infection? No. Patient's initial sepsis screen is negative. Risk Assessment: Do you want to hurt yourself or someone else? Patient reports no desire to harm self or others. Onset of symptoms was January 24, 2023. 07:31 Method Of Arrival: Ambulatory jl7 07:31 Acuity: PARTHA 3 jl7 Triage Assessment: 07:33 General: Appears in no apparent distress. uncomfortable, Behavior is calm, cooperative, jl7 appropriate for age. Pain: Complains of pain in headache Pain currently is 7 out of 10 on a pain scale. GI: Reports bloody stool. 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 - Social history:: Smoking status: Patient denies any tobacco usage or history of. Screenin:34 [facility] ED Fall Risk Assessment (Adult) History of falling in the last 3 months, jl7 including since admission No falls in past 3 months (0 pts). Abuse screen: Denies threats or abuse. Denies injuries from another. Nutritional screening: No deficits noted. Tuberculosis screening: No symptoms or risk factors identified. Assessment: 07:40 Reassessment: Dr. Stevens in triage assessing pt. jl7 Vital Signs: 07:31 BP 140 / 90; Pulse 84; Resp 17; Temp 97.9; Pulse Ox 98% ; Weight 127.01 kg; Height 5 jl7 ft. 3 in. ; Pain 7/10; 07:31 Body Mass Index 49.60 (127.01 kg, 160.02 cm) - Percentile 99.1 % jl7 07:31 Pain Scale: Adult jl7 ED Course: 07:24 Patient arrived in ED. im 07:33 Triage completed. jl7 07:33 Arm band placed on right wrist. Patient placed in waiting room, Patient notified of jl7 wait time. 07:36 Brett Stevens MD is Attending Physician. ec2 07:50 Nena Quinones RN is Primary Nurse. jl7 09:34 Patient has correct armband on for positive identification. Provided Education on: use jl7 of medication. 09:34 No provider procedures requiring assistance completed. Patient did not have IV access jl7 during this emergency room visit. Administered Medications: No medications were administered Medication: 09:34 VIS not applicable for this client. jl7 Outcome: 09:08 Discharge ordered by . ec2 09:34 Discharged to home ambulatory, jl7 09:34 Condition: stable 09:34 Discharge instructions given to patient, Instructed on discharge instructions, follow up and referral plans. medication usage, Demonstrated understanding of instructions, follow-up care, medications, Prescriptions given X 1, 09:35 Patient left the ED. jl7 Signatures: Nena Quinones, MARCELINA RN jl7 Melony Ramirez Brett Stevens MD MD ec2
[2023-01-26 09:39] VITALS: BP 140/90; TEMP 97.9; O2SAT 98
== END 2023-01-26 09:35 | disposition home or self-care (01) ==
LOC: ER 07:20
DX: B34.9 Viral infection, unspecified (principal); K64.9 Unspecified hemorrhoids; Z11.52 Encounter for screening for COVID-19
CPT/HCPCS: 36415; 87804; 87811; 99283

== ENCOUNTER → 2023-05-04 | Emergency (ER) | payer OTHER ==
[~2023-05-04] MED LIST: AZITHROMYCIN 250 MG TAB ONE
[2023-05-04 16:00] LABS: SARS-CoV-2 Antigen Rapid Res Negative (Negative)
--- NOTE | 2023-05-04 16:48 | EDPHYS ---
Physician Documentation [facility] Name: Nancy Love Age: 18 yrs Sex: Female : 2005 Arrival Date: 05/04/2023 Time: 15:02 Bed 15 Private MD: ED Physician Tamanna Calderón HPI: 05/04 16:46 This 18 yrs old Black Female presents to ER via Ambulatory with complaints of Flu snw Symptoms, Headache. 16:46 The patient has not experienced similar symptoms in the past, but friend has similar snw symptoms, friend recently dx with influenza. The patient has not recently seen a physician. 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 - Social history:: Smoking status: Reported history of juuling and/or vaping. ROS: 16:42 Constitutional: Positive for fever, chills, diarrhea ,and malaise, negative for weight snw loss, Eyes: Negative for injury, pain, redness, and discharge, ENT: Negative for injury, pain, and discharge, Neck: Negative for injury, pain, and swelling, Cardiovascular: Negative for chest pain, palpitations, and edema, 16:42 Back: Negative for injury and pain, : Negative for injury, bleeding, discharge, and swelling, MS/Extremity: Negative for injury and deformity, Skin: Negative for injury, rash, and discoloration, 16:42 Psych: Negative for depression, anxiety, suicide ideation, homicidal ideation, and hallucinations, 16:42 Respiratory: Positive for cough, 16:42 Abdomen/GI: Positive for diarrhea, 16:42 Neuro: Positive for headache, Exam: 16:42 Head/Face: Normocephalic, atraumatic. Eyes: Pupils equal round and reactive to light, snw extra-ocular motions intact. Lids and lashes normal. Conjunctiva and sclera are non-icteric and not injected. Cornea within normal limits. Periorbital areas with no swelling, redness, or edema. ENT: Nares patent. No nasal discharge, no septal abnormalities noted. Tympanic membranes are normal and external auditory canals are clear. Oropharynx with no redness, swelling, or masses, exudates, or evidence of obstruction, uvula midline. Mucous membranes moist. Neck: Trachea midline, no thyromegaly or masses palpated, and no cervical lymphadenopathy. Supple, full range of motion without nuchal rigidity, or vertebral point tenderness. No Meningismus. Chest/axilla: Normal chest wall appearance and motion. Nontender with no deformity. No lesions are appreciated. Cardiovascular: Regular rate and rhythm with a normal S1 and S2. No gallops, murmurs, or rubs. Normal PMI, no JVD. No pulse deficits. Respiratory: Lungs have equal breath sounds bilaterally, clear to auscultation and percussion. No rales, rhonchi or wheezes noted. No increased work of breathing, no retractions or nasal flaring. Abdomen/GI: Soft, non-tender, with normal bowel sounds. No distension or tympany. No guarding or rebound. No evidence of tenderness throughout. Back: No spinal tenderness. No costovertebral tenderness. Full range of motion. Skin: Warm, dry with normal turgor. Normal color with no rashes, no lesions, and no evidence of cellulitis. MS/ Extremity: Pulses equal, no cyanosis. Neurovascular intact. Full, normal range of motion. Neuro: Awake and alert, GCS 15, oriented to person, place, time, and situation. Cranial nerves II-XII grossly intact. Motor strength 5/5 in all extremities. Sensory grossly intact. Cerebellar exam normal. Normal gait. Psych: Awake, alert, with orientation to person, place and time. Behavior, mood, and affect are within normal limits. 16:42 Constitutional: The patient appears alert, awake, obese, uncomfortable, Vital Signs: 15:27 BP 137 / 80; Pulse 87; Resp 16; Temp 99.7; Pulse Ox 98% on R/A; Weight 135.17 kg (R); cm10 Height 5 ft. 3 in. ; Pain 10/10; 17:05 BP 129 / 75; Pulse 86; Resp 18; Pulse Ox 100% on R/A; db 15:27 Body Mass Index 52.79 (135.17 kg, 160.02 cm) cm10 15:27 Pain Scale: Adult cm10 MDM: 15:24 Patient medically screened. snw 16:48 Differential diagnosis: bronchitis, flu, URI. Data reviewed: vital signs, nurses notes, snw lab test result(s). Counseling: I had a detailed discussion with the patient and/or guardian regarding the historical points, exam findings, and any diagnostic results supporting the discharge/admit diagnosis, lab results, the need for outpatient follow up, for definitive care, to return to the emergency department if symptoms worsen or persist or if there are any questions or concerns that arise at home. Response to treatment: There is no appreciated change of the patient's symptoms at this time. Special discussion: Based on the history and exam findings, there is no indication for further emergent testing or inpatient evaluation. I discussed with the patient/guardian the need to see the primary care provider for further evaluation of the symptoms. 16:51 ED course: pt began taking abx for strep but does not have enough to finish course. snw Will provide Zmax for completion.. 05/04 15:28 Order name: Flu; Complete Time: 16:41 snw 05/04 15:28 Order name: SARS RAPID; Complete Time: 16:00 snw Administered Medications: 17:08 Drug: AZITHromycin PO 500 mg PO once Route: PO; db 17:23 Follow up: Response: No adverse reaction db Disposition Summary: 05/04/23 16:47 Discharge Ordered Notes: Location: Home snw Condition: Stable snw Diagnosis - Viral infection, unspecified snw Followup: snw - With: Emergency Department - When: As needed - Reason: Worsening of condition Followup: snw - With: Private Physician - When: 5 - 6 days - Reason: Recheck today's complaints, Continuance of care, Re-evaluation by your physician Discharge Instructions: - Discharge Summary Sheet snw - Viral Respiratory Infection snw - Rehydration, Adult snw Forms: - Work release form snw - Medication Reconciliation Form snw - Thank You Letter snw - Antibiotic Education snw - Prescription Opioid Use snw - Patient Portal Instructions snw - Leadership Thank You Letter snw Prescriptions: - orphenadrine citrate 100 mg Oral Tablet Sustained Release - take 1 tablet ORAL route 2 times per day As needed; 20 tablet; Refills: 0, snw Product Selection Permitted - Pepcid 20 mg Oral Tablet - take 1 tablet ORAL route once daily; 20 tablet; Refills: 0, Product Selection snw Permitted - promethazine 25 mg Oral Tablet - take 1 tablet ORAL route every 6 hours As needed; 20 tablet; Refills: 0, snw Product Selection Permitted - Zithromax 500 mg Oral Tablet - take 1 tablet ORAL route once daily for 3 days; 3 tablet; Refills: 0, Product snw Selection Permitted Signatures: Dispatcher [employer] Madeleine Mesa, SALES REPRESENTATIVE [employer]-C SALES REPRESENTATIVE [employer]-Csnw Urszula Kendall, RN RN db Lacey Seaman RN RN cm10
--- NOTE | 2023-05-04 16:48 | ER ---
Nurse's Notes [facility] Name: Nancy Love Age: 18 yrs Sex: Female : 2005 Arrival Date: 05/04/2023 Time: 15:02 Bed 15 Private MD: Diagnosis: Viral infection, unspecified Presentation: 05/04 15:27 Chief complaint: Patient states: Headache, fever, sore throat, chills and diarrhea cm10 onset 2 days ago. Pt reports taking ibuprofen, amoxicillin and Vicks with no relief. PT denies sick contacts. Coronavirus screen: Vaccine status: Patient reports receiving the 2nd dose of the covid vaccine. Client denies travel out of the [place] in the last 14 days. Ebola Screen: Patient denies travel to an Ebola-affected area in the 21 days before illness onset. No symptoms or risks identified at this time. Initial Sepsis Screen: Does the patient meet any 2 criteria? No. Patient's initial sepsis screen is negative. Does the patient have a suspected source of infection? No. Patient's initial sepsis screen is negative. Risk Assessment: Do you want to hurt yourself or someone else? Patient reports no desire to harm self or others. Onset of symptoms was May 04, 2023. 15:27 Method Of Arrival: Ambulatory cm10 15:27 Acuity: PARTHA 4 cm10 Triage Assessment: 16:30 General: Appears in no apparent distress. comfortable, Behavior is calm, cooperative. db Pain: Complains of pain in head. 17:22 Headache History: The patient has had previous headaches. 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 - Social history:: Smoking status: Reported history of juuling and/or vaping. Screenin:30 [facility] ED Fall Risk Assessment (Adult) History of falling in the last 3 months, cm10 including since admission No falls in past 3 months (0 pts) Confusion or Disorientation No (0 pts) Intoxicated or Sedated No (0 pts) Impaired Gait No (0 pts) Mobility Assist Device Used No (0 pt) Altered Elimination No (0 pt) Score/Fall Risk Level 0 - 2 = Low Risk Oriented to surroundings, Maintained a safe environment, Hourly rounding (assess needs \T\ fall precautionary measures) done. Abuse screen: Denies threats or abuse. Denies injuries from another. Nutritional screening: No deficits noted. Tuberculosis screening: No symptoms or risk factors identified. Assessment: 15:29 General: Appears in no apparent distress. comfortable, Behavior is calm, cooperative. cm10 Pain: Complains of pain in Generalized body aches. Neuro: No deficits noted. Level of Consciousness is awake, alert, obeys commands, Oriented to person, place, time, situation. Cardiovascular: No deficits noted. Patient's skin is warm and dry. Cardiovascular: Denies chest pain, shortness of breath. Respiratory: No deficits noted. Airway is patent Respiratory effort is even, unlabored, Respiratory pattern is regular, symmetrical. Respiratory: Reports cough that is. GI: No deficits noted. Abdomen is obese, Reports diarrhea. : No deficits noted. No signs and/or symptoms were reported regarding the genitourinary system. EENT: No deficits noted. No signs and/or symptoms were reported regarding the EENT system. Derm: No deficits noted. No signs and/or symptoms reported regarding the dermatologic system. Skin is intact, Skin is pink, warm \T\ dry. Musculoskeletal: No deficits noted. No signs and/or symptoms reported regarding the musculoskeletal system. Range of motion: intact in all extremities. 15:39 Reassessment: Patient appears in no apparent distress at this time. Patient and/or db family updated on plan of care and expected duration. Pain level reassessed. Patient is alert, oriented x 3, equal unlabored respirations, skin warm/dry/pink. 17:05 Reassessment: Patient appears in no apparent distress at this time. Patient and/or db family updated on plan of care and expected duration. Pain level reassessed. Patient is alert, oriented x 3, equal unlabored respirations, skin warm/dry/pink. Vital Signs: 15:27 BP 137 / 80; Pulse 87; Resp 16; Temp 99.7; Pulse Ox 98% on R/A; Weight 135.17 kg (R); cm10 Height 5 ft. 3 in. ; Pain 10/10; 17:05 BP 129 / 75; Pulse 86; Resp 18; Pulse Ox 100% on R/A; db 15:27 Body Mass Index 52.79 (135.17 kg, 160.02 cm) cm10 15:27 Pain Scale: Adult cm10 ED Course: 15:22 Patient arrived in ED. mg5 15:24 Madeleine Medina FNP-C [facility]. snw 15:24 Tamanna Calderón MD is Attending Physician. snw 15:28 Triage completed. cm10 15:28 Arm band placed on Patient placed in an exam room. cm10 15:30 No provider procedures requiring assistance completed. Patient did not have IV access cm10 during this emergency room visit. 15:39 Urszula Kendall, RN is Primary Nurse. db 15:39 Patient has correct armband on for positive identification. Bed in low position. Call db light in reach. Side rails up X 1. 17:05 Provided Education on: DISCHARGE AND MEDICATIONS. db Administered Medications: 17:08 Drug: AZITHromycin PO 500 mg PO once Route: PO; db 17:23 Follow up: Response: No adverse reaction db Medication: 15:30 VIS not applicable for this client. cm10 Outcome: 16:47 Discharge ordered by . snw 17:05 Discharged to home ambulatory, db 17:05 Condition: stable 17:05 Discharge instructions given to patient, Instructed on discharge instructions, follow up and referral plans. Prescriptions given X 3, 17:23 Patient left the ED. db Signatures: Madeleine Medina FNP-C [employer] MAINTENAN[employer]-Csnw Urszula Kendall, RN RN db Lacey Seaman RN RN 10 Danitza Alva mg5
[2023-05-04 17:34] VITALS: BP 137/80; TEMP 99.7; O2SAT 98
== END ==
LOC: ER 15:02
DX: B34.9 Viral infection, unspecified (principal); Z11.52 Encounter for screening for COVID-19
CPT/HCPCS: 36415; 87804; 87811

== ENCOUNTER 2024-02-29 15:26 | Emergency (ER) | payer OTHER, SELFPAY ==
[2024-02-29 17:55] LABS: SARS-CoV-2 Antigen CONTROL BLUE LINE VIS/BG OK; SARS-CoV-2 Antigen Rapid Res Negative (Negative)
--- NOTE | 2024-02-29 20:00 | RAD REPORT ---
EXAM: Chest Single View HISTORY: Cough;Congestion COMPARISON: 09/27/2009 FINDINGS: LUNGS/PLEURA: The lungs are clear. No pleural effusions or pneumothorax. No pulmonary edema. MEDIASTINUM: The mediastinal silhouette is within normal limits. CARDIAC: Cardiomegaly. UPPER ABDOMEN: No significant abnormality. BONES: No acute fracture. LINES/TUBES/OTHER: N/A IMPRESSION: No evidence of acute cardiopulmonary disease. Enlarged cardiac silhouette.. Echocardiography could fu rther evaluate.
[2024-02-29 20:31] LABS: Absolute Eosinophils 0.1 K/uL (0-0.5); Absolute Lymphocytes (CBC) 2.6 K/uL (0.7-4.9); Absolute Monocytes 0.5 K/uL (0.1-1.3); Absolute Neutrophil 3.1 K/uL (1.8-8.0); Basophils % 0.8 % (0-1.3); Eosinophils % 0.8 % (0-4.4); Hematocrit 39.5 % (36.0-45.0); Hemoglobin 12.6 g/dL (12.0-15.0); Lymphocytes % 41.5 % (15.3-44.8); MCHC 31.8 g/dL (32.0-36.0); MCV 87.9 fL (80-100); Monocytes % 7.2 % (3.3-12.3); Neutrophils % 49.7 % (41.7-73.7); Platelets 318 thou/uL (152-406); RBC Red Blood Cell Count 4.49 M/uL (3.86-4.86); Red Cell Distribution Width 16.2 % (12.1-15.2)
[2024-02-29 20:34] LABS: Sqamous Epithelial <5 /HPF (None Seen); Urine Bacteria <20 /HPF (<20); Urine Bilirubin NEGATIVE (Negative); Urine Blood Negative (Negative); Urine Clarity Turbid (Clear); Urine Color Yellow (Yellow); Urine Culture Reflex Order NOT NEEDED; Urine Glucose NEGATIVE (Negative); Urine Ketones NEGATIVE (Negative); Urine Microscopic Reflex YN ORDER UMIC; Urine Mucus Slight /HPF (None Seen); Urine Nitrite NEGATIVE (Negative); Urine Protein TRACE (Negative); Urine RBC None Seen /HPF (None Seen); Urine Urobilinogen Normal (Normal); Urine WBC <5 /HPF (<5)
[2024-02-29 20:48] LABS: Albumin 2.9 g/dL (3.4-5.0); Albumin/Globulin Ratio 0.7 (1.1-1.8); Anion Gap 8.4 mEq/L (5.0-15.0); Bilirubin Total 0.2 mg/dL (0.2-1.0); Globulin 4.2 g/dL (2.3-3.5); Potassium 3.4 mEq/L (3.5-5.1); Protein, Total 7.1 g/dL (6.4-8.2)
[2024-02-29 21:09] LABS: Monoscreen NEG (NEG)
--- NOTE | 2024-02-29 22:44 | ER ---
Nurse's Notes [facility] Name: Nancy Love Age: 19 yrs Sex: Female : 2005 Arrival Date: 02/29/2024 Time: 15:26 Bed 17 Private MD: Diagnosis: Cough;Nausea with vomiting, unspecified;Headache Presentation: 02/28 17:01 Chief complaint: Patient states: fever, MAGANA, vomiting, cough, body aches and runny nose. ss Coronavirus screen: Client denies travel out of the [place] in the last 14 days. Ebola Screen: Patient denies exposure to infectious person. Patient denies travel to an Ebola-affected area in the 21 days before illness onset. Initial Sepsis Screen: Does the patient meet any 2 criteria? No. Patient's initial sepsis screen is negative. Does the patient have a suspected source of infection? No. Patient's initial sepsis screen is negative. Risk Assessment: Do you want to hurt yourself or someone else? Patient reports no desire to harm self or others. Onset of symptoms was February 28, 2024. 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 - Infectious Disease History:: Denies. - Social history:: Smoking status: Patient denies any tobacco usage or history of. Screenin:20 [facility] ED Fall Risk Assessment (Adult) History of falling in the last 3 months, kj2 including since admission No falls in past 3 months (0 pts) Confusion or Disorientation No (0 pts) Intoxicated or Sedated No (0 pts) Impaired Gait No (0 pts) Mobility Assist Device Used No (0 pt) Altered Elimination No (0 pt) Score/Fall Risk Level 0 - 2 = Low Risk Maintained a safe environment, Hourly rounding (assess needs \T\ fall precautionary measures) done. Abuse screen: Denies threats or abuse. Denies injuries from another. Nutritional screening: No deficits noted. Tuberculosis screening: No symptoms or risk factors identified. Assessment: 19:20 General: Appears in no apparent distress. Behavior is calm, cooperative. Pain: kj2 Complains of pain in HEADACHE Pain currently is 5 out of 10 on a pain scale. Neuro: Level of Consciousness is awake, alert, obeys commands. Cardiovascular: Patient's skin is warm and dry. Respiratory: Airway is patent Respiratory effort is unlabored. GI: No signs and/or symptoms were reported involving the gastrointestinal system. : No signs and/or symptoms were reported regarding the genitourinary system. 20:30 Reassessment: Patient appears in no apparent distress at this time. Patient and/or kj2 family updated on plan of care and expected duration. Pain level reassessed. Patient is alert, oriented x 3, equal unlabored respirations, skin warm/dry/pink. 21:30 Reassessment: Patient appears in no apparent distress at this time. Patient and/or kj2 family updated on plan of care and expected duration. Pain level reassessed. Patient is alert, oriented x 3, equal unlabored respirations, skin warm/dry/pink. 22:30 Reassessment: Patient appears in no apparent distress at this time. Patient and/or kj2 family updated on plan of care and expected duration. Pain level reassessed. Patient is alert, oriented x 3, equal unlabored respirations, skin warm/dry/pink. 23:21 Reassessment: PATIENT LEFT BEFORE SIGNING DISCHARGE PPW. [facility] Vital Signs: 17:01 BP 132 / 96; Pulse 70; Resp 15; Temp 98.8; Pulse Ox 100% on R/A; Weight 131.54 kg; ss Height 5 ft. 3 in. ; Pain 9/10; 20:38 BP 138 / 90; Pulse 80; Resp 20; Temp 99.3; Pulse Ox 98% on R/A; kj2 22:22 BP 134 / 88; Pulse 78; Resp 18; Pulse Ox 100% on R/A; kj2 17:01 Body Mass Index 51.37 (131.54 kg, 160.02 cm) ss 17:01 Pain Scale: Adult ss ED Course: 15:30 Patient arrived in ED. mr 15:52 Vania Glez FNP-C [facility]. kb 15:52 Kolton Santo MD is Attending Physician. kb 17:03 Triage completed. ss 17:03 Arm band placed on right wrist. ss 17:27 COVID swab sent to lab. Flu and/or RSV swab sent to lab. Strep swab sent to lab. em1 18:04 PHCP role handed off by Vania Glez FNP-C cp 18:04 Kolton Lambert PA is PHCP. cp 19:20 Patient has correct armband on for positive identification. Bed in low position. Call kj2 light in reach. Adult w/ patient. Provided Education on: CALL LIGHT. 19:46 Chest Single View XRAY In Process Unspecified. EDMS 20:03 Sharon Shrestha, RN is Primary Nurse. kj2 20:28 Test, Serum Sent. kj2 20:28 Urinalysis w/ reflexes Sent. kj2 20:28 CMP Sent. kj2 20:28 [place] Screen Profile Sent. kj2 20:28 Inserted saline lock: 20 gauge in right antecubital area, using aseptic technique. kj2 Blood collected. Flushed with 10 mL NS. 20:33 No provider procedures requiring assistance completed. kj2 23:22 IV discontinued. IV discontinued, intact, bleeding controlled, No redness/swelling at kj2 site. Pressure dressing applied. Administered Medications: 17:15 Not Given (Patient Refused): Ondansetron Oral Disintegrating Tablet 4 mg PO once ss 23:21 Not Given (Patient Refused): potassiumeffervescent tablet 25 meq PO once; dissolve in 4 kj2 ounces of water or juice 23:21 Not Given (Patient Refused): ondansetron4 mg PO once kj2 Medication: 20:31 VIS not applicable for this client. kj2 Outcome: 22:43 Discharge ordered by . cp 23:22 Discharged to home ambulatory, kj2 23:22 Condition: stable 23:22 Discharge instructions given to patient, Instructed on discharge instructions, follow up and referral plans. Demonstrated understanding of instructions, follow-up care, 23:24 Patient left the ED. kj2 Signatures: Dispatcher [employer] EDDC Vania Glez FNP-C FNP-Elizabeth Burnham, Reg Reg Sebastián Morales em1 Almita Altman RN RN ss Kolton Lambert PA PA cp Jordan, Krystal, RN RN kj2 Corrections: (The following items were deleted from the chart) 17:03 17:03 Allergies: No Known Allergies; ss ss
--- NOTE | 2024-02-29 22:44 | EDPHYS ---
Physician Documentation [facility] Name: Nancy Love Age: 19 yrs Sex: Female : 2005 Arrival Date: 02/29/2024 Time: 15:26 Bed 17 Private MD: ED Physician Kolton Santo HPI: 02/28 15:58 This 19 yrs old Black Female presents to ER via Unassigned with complaints of Flu kb Symptoms. 15:58 Patient is a 19-year-old female who presents for fever, headache, vomiting, cough, body kb aches, runny nose that started yesterday.. 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 - Infectious Disease History:: Denies. - Social history:: Smoking status: Patient denies any tobacco usage or history of. ROS: 16:00 Constitutional: As per HPI kb Exam: 16:00 Constitutional: This is a well developed, well nourished patient who is awake, alert, kb and in no acute distress. Head/Face: Normocephalic, atraumatic. ENT: Moist Mucous membranes Cardiovascular: Regular rate Respiratory: Respirations even and unlabored. No increased work of breathing. Talking in full sentences Abdomen/GI: Soft, non-tender. No distention Skin: Warm, dry with normal turgor. Normal color. MS/ Extremity: Pulses equal, no cyanosis. Neurovascular intact. Full, normal range of motion. Neuro: Awake and alert, GCS 15, oriented to person, place, time, and situation. Vital Signs: 17:01 BP 132 / 96; Pulse 70; Resp 15; Temp 98.8; Pulse Ox 100% on R/A; Weight 131.54 kg; ss Height 5 ft. 3 in. ; Pain 9/10; 20:38 BP 138 / 90; Pulse 80; Resp 20; Temp 99.3; Pulse Ox 98% on R/A; kj2 22:22 BP 134 / 88; Pulse 78; Resp 18; Pulse Ox 100% on R/A; kj2 17:01 Body Mass Index 51.37 (131.54 kg, 160.02 cm) ss 17:01 Pain Scale: Adult ss MDM: 15:52 Medical Screening Exam initiated kb 16:00 Data reviewed: vital signs, nurses notes. kb 18:14 Transition of care: After a detail discussion of the patient's case, care is kb transferred to Kolton LERNER. 02/28 15:57 Order name: Flu; Complete Time: 17:57 kb 02/28 20:07 Interpretation: Reviewed. 02/28 15:57 Order name: SARS-COV-2 Antigen Rapid; Complete Time: 17:57 kb 02/28 20:08 Interpretation: Reviewed. 02/28 15:57 Order name: Strep; Complete Time: 20:08 kb 02/28 20:08 Interpretation: Reviewed. 02/28 17:58 Order name: Throat Culture EDSC 02/28 17:59 Order name: CBC with Diff; Complete Time: 22:38 kb 02/28 22:38 Interpretation: Normal except: MCHC 31.8; RDW 16.2. 02/28 17:59 Order name: [place] Screen Profile; Complete Time: 22:38 kb 02/28 22:39 Interpretation: Reviewed. 02/28 17:59 Order name: CMP; Complete Time: 22:38 kb 02/28 22:38 Interpretation: Normal except: K 3.4; CL 108; GLUC 110; ALB 2.9; GLOB 4.2; A/G 0.7. 02/28 17:59 Order name: Lipase; Complete Time: 22:38 kb 02/28 22:39 Interpretation: Reviewed. 02/28 18:05 Order name: Urinalysis w/ reflexes; Complete Time: 22:38 02/28 22:38 Interpretation: Normal except: [facility] Turbid; UPROT TRACE. 02/28 18:05 Order name: Test, Serum; Complete Time: 22:38 02/28 22:39 Interpretation: Reviewed. 02/28 18:04 Order name: Chest Single View XRAY; Complete Time: 20:07 kb 02/28 20:07 Interpretation: Report review. 02/28 17:59 Order name: IV Start; Complete Time: 20:28 kb Administered Medications: 17:15 Not Given (Patient Refused): Ondansetron Oral Disintegrating Tablet 4 mg PO once ss 23:21 Not Given (Patient Refused): potassiumeffervescent tablet 25 meq PO once; dissolve in 4 kj2 ounces of water or juice 23:21 Not Given (Patient Refused): ondansetron4 mg PO once kj2 Disposition Summary: 02/29/24 22:43 Discharge Ordered Notes: Location: Home cp Problem: new cp Symptoms: have improved cp Condition: Stable cp Diagnosis - Cough cp - Nausea with vomiting, unspecified cp - Headache cp Followup: cp - With: Private Physician - When: 2 - 3 days - Reason: Worsening of condition Discharge Instructions: - Discharge Summary Sheet cp - General Headache Without Cause cp - Nausea and Vomiting, Adult cp - Cough, Adult cp Forms: - Work release form cp - Medication Reconciliation Form cp - Antibiotic Education cp - Prescription Opioid Use cp - Patient Portal Instructions cp - Leadership Thank You Letter cp Prescriptions: - Naprosyn 500 mg Oral tablet - take 1 tablet ORAL route 2 times per day take with food; 20 tablet; Refills: 0, cp Product Selection Permitted - Zofran 4 mg Oral Tablet - take 1 tablet ORAL route every 12 hours As needed; 20 tablet; Refills: 0, cp Product Selection Permitted Signatures: Dispatcher [employer] EDVania Eid, WU-C BROMINATION EQUIPMENT OPERATOR-Almita Tavarez RN RN Kolton Yi PA PA cp Sharon Shrestha RN RN kj2 Corrections: (The following items were deleted from the chart) 15:58 15:58 Influenza Screen (A \T\ B)+BA.LAB.BRZ ordered. EDMS EDMS 15:58 15:58 SARS-COV-2 Antigen Rapid+I.LAB.BRZ ordered. EDMS EDMS 15:58 15:58 Group A Streptococcus Rapid Sc+BA.LAB.BRZ ordered. EDMS EDMS 17:03 17:03 Allergies: No Known Allergies; ss ss 17:59 17:59 CBC+H.LAB.BRZ ordered. EDMS EDMS 17:59 17:59 MONO SCREEN PROFILE+I.LAB.BRZ ordered. EDMS EDMS 17:59 17:59 COMPREHENSIVE METABOLIC PANEL+C.LAB.BRZ ordered. EDMS EDMS 18:00 18:00 LIPASE+C.LAB.BRZ ordered. EDMS EDMS 18:05 18:05 Urinalysis+U.LAB.BRZ ordered. EDMS EDMS 18:05 18:05 TEST, SERUM+SC.LAB.BRZ ordered. EDMS EDMS
[2024-02-29] MEDS ORDERED: ONDANSETRON 4 MG (ODT) TAB ONE (23:08)
[2024-02-29] MEDS ORDERED: POTASSIUM CL SA 10 MEQ TAB PO ONE (23:14)
[2024-03-01 02:09] VITALS: TEMP 99.3
[2024-03-01 02:15] VITALS: BP 134/88; O2SAT 100
== END 2024-02-29 23:24 | disposition home or self-care (01) ==
LOC: ER 15:26
DX: R05.9 Cough, unspecified (principal); R11.2 Nausea with vomiting, unspecified; R51.9 Headache, unspecified; Z11.52 Encounter for screening for COVID-19
CPT/HCPCS: 36415; 71045; 80053; 81001; 83690; 84703; 85025; 86308; 87070; 87081; 87804; 87811; 99284; Q0162

== ENCOUNTER 2024-07-01 15:51 | Emergency (ER) | payer OTHER ==
--- NOTE | 2024-07-01 17:36 | RAD REPORT ---
EXAMINATION: US FIRST TRIMESTER TRANSVAGINAL WITH DOPPLER CLINICAL INDICATION: with vaginal bleeding TECHNIQUE: Real-time obstetrical ultrasonography of the maternal pelvis and first trimester was performed transvaginally. Color and spectral Doppler evaluation of the ovaries was performed. COMPARISON: No prior exam. FINDINGS: The uterus measures 7 x 4 x 5 cm. An irregularly-shaped fluid collection is present within the lower uterine body measuring 2 x 0.5 cm. . A pole was not seen. Right ovary normal in size and echotexture Left ovary normal in size and echotexture Right and left adnexa unremarkable No significant free fluid IMPRESSION: Irregularly shaped fluid collection within the endometrium of the lower uterine segment may indicate an incomplete . This should be correlated clinically and with beta hCG levels. Follow-up endovaginal sonogram in one week may be helpful for further evaluation
[2024-07-01 17:41] LABS: Absolute Basophils 0.1 K/uL (0-0.5); Absolute Eosinophils 0.2 K/uL (0-0.5); Absolute Lymphocytes (CBC) 3.4 K/uL (0.7-4.9); Absolute Monocytes 0.3 K/uL (0.1-1.3); Absolute Neutrophil 4.2 K/uL (1.8-8.0); Basophils % 1.7 % (0-1.3); Eosinophils % 1.9 % (0-4.4); Hematocrit 39.6 % (36.0-45.0); Hemoglobin 12.6 g/dL (12.0-15.0); Lymphocytes % 41.1 % (15.3-44.8); MCH 26.6 pg (27.0-35.0); MCHC 31.8 g/dL (32.0-36.0); MCV 83.5 fL (80-100); MPV 8.2 fL (7.6-11.3); Monocytes % 3.7 % (3.3-12.3); Neutrophils % 51.6 % (41.7-73.7); Nucleated Red Blood Cells % 0.1 % (0-0); Platelets 374 thou/uL (152-406); RBC Red Blood Cell Count 4.75 M/uL (3.86-4.86); Red Cell Distribution Width 15.1 % (12.1-15.2)
[2024-07-01 17:52] LABS: Anion Gap 5.1 mEq/L (5.0-15.0); Potassium 4.1 mEq/L (3.5-5.1)
[2024-07-01 17:53] LABS: Specific Gravity 1.025 (1.005-1.030); Sqamous Epithelial <5 /HPF (None Seen); Urine Bacteria <20 /HPF (<20); Urine Bilirubin NEGATIVE (Negative); Urine Blood 2+ (Negative); Urine Clarity Clear (Clear); Urine Color Light-Yellow (Yellow); Urine Culture Reflex Order NOT NEEDED; Urine Glucose NEGATIVE (Negative); Urine Ketones NEGATIVE (Negative); Urine Microscopic Reflex YN ORDER UMIC; Urine Mucus Slight /HPF (None Seen); Urine Nitrite NEGATIVE (Negative); Urine Protein NEGATIVE (Negative); Urine RBC <5 /HPF (None Seen); Urine Urobilinogen Normal (Normal); Urine WBC <5 /HPF (<5)
[2024-07-01 17:54] LABS: Specific Gravity 1.025 (1.005-1.030)
--- NOTE | 2024-07-01 18:25 | EDPHYS ---
Physician Documentation [facility] Name: Nancy Love Age: 19 yrs Sex: Female : 2005 Arrival Date: 07/01/2024 Time: 15:51 Bed 11 Private MD: ED Physician Joel Murry HPI: 07/01 16:41 This 19 yrs old Black Female presents to ER via Ambulatory with complaints of Vaginal dr5 Bleeding, Abdominal Pain, Possible . 16:42 Patient is a 19-year-old female that had miscarriage 3 months ago. Patient is a G1, P0. dr5 Last menstrual period is unknown due to not having 1 since miscarriage. Patient reports intermittent vaginal bleeding with clots that started approximately week ago. Patient reports mild lower abdominal cramping. Patient denies dysuria. Historical: - Allergies: 16:11 No Known Allergies; iw - Home Meds: 16:11 None [Active]; iw - PSHx: 16:11 Tonsillectomy; iw - Immunization history:: Adult Immunizations up to date. - Infectious Disease History:: Denies. - Social history:: Smoking status: unknown. ROS: 16:42 Constitutional: as per hpi dr5 Exam: 16:42 Constitutional: This is a well developed, well nourished patient who is awake, alert, dr5 and in no acute distress. Head/Face: Normocephalic, atraumatic. Eyes: Pupils equal round and reactive to light, extra-ocular motions intact. Lids and lashes normal. Conjunctiva and sclera are non-icteric and not injected. Cornea within normal limits. Periorbital areas with no swelling, redness, or edema. Neck: Trachea midline, no thyromegaly or masses palpated, and no cervical lymphadenopathy. Supple, full range of motion without nuchal rigidity, or vertebral point tenderness. No Meningismus. Chest/axilla: Normal chest wall appearance and motion. Nontender with no deformity. No lesions are appreciated. Cardiovascular: Regular rate and rhythm with a normal S1 and S2. Normal PMI, no JVD. No pulse deficits. Respiratory: Lungs have equal breath sounds bilaterally, clear to auscultation. No rales, rhonchi or wheezes noted. No increased work of breathing, no retractions or nasal flaring. Back: No spinal tenderness. No costovertebral tenderness. Full range of motion. 16:42 Skin: Warm, dry with normal turgor. Normal color with no rashes, no lesions, and no evidence of cellulitis. Neuro: Awake and alert, GCS 15, oriented to person, place, time, and situation. Cranial nerves II-XII grossly intact. Motor strength 5/5 in all extremities. Sensory grossly intact. Cerebellar exam normal. Normal gait. 16:42 Abdomen/GI: Inspection: abdomen appears normal, Bowel sounds: Palpation: mild abdominal tenderness, in the suprapubic area, Vital Signs: 16:12 BP 157 / 108; Pulse 56; Resp 16; Temp 98.7(O); Pulse Ox 100% on R/A; Weight 104.33 kg; iw Height 5 ft. 2 in. ; 18:34 BP 138 / 72; Pulse 55; Resp 18 S; Pulse Ox 96% on R/A; kc6 16:12 Body Mass Index 42.07 (104.33 kg, 157.48 cm) iw MDM: 16:01 Medical Screening Exam initiated dr5 18:25 Differential diagnosis: menorrhea, Data reviewed: vital signs, nurses notes. kb Counseling: I had a detailed discussion with the patient and/or guardian regarding the historical points, exam findings, and any diagnostic results supporting the discharge/admit diagnosis, lab results, radiology results, the need for outpatient follow up, a family practitioner, to return to the emergency department if symptoms worsen or persist or if there are any questions or concerns that arise at home. 07/01 16:14 Order name: Abo/rh Typing; Complete Time: 18: [facility] 07/01 16:14 Order name: Basic Metabolic Panel; Complete Time: 18: [facility] 07/01 16:14 Order name: CBC with Diff; Complete Time: 18: [facility] 07/01 16:14 Order name: Test, Urine; Complete Time: 18: [facility] 07/01 16:14 Order name: Quantitative Hcg; Complete Time: 18: [facility] 07/01 16:14 Order name: Urinalysis w/ reflexes; Complete Time: 18:07/01 16:14 Order name: US Transvaginal Ob; Complete Time: 17:[address] [facility] 07/01 16:14 Order name: IV Saline Lock; Complete Time: 17:[address] [facility] 07/01 16:14 Order name: Labs collected and sent; Complete Time: 17:23 dr5 07/01 16:14 Order name: NPO; Complete Time: 17:23 dr5 Administered Medications: No medications were administered Disposition: 17:25 I was immediately available on-site in the Emergency Department for consultation in the ms3 care of the patient. Disposition Summary: 07/01/24 18:24 Discharge Ordered Notes: Location: Home kb Condition: Stable kb Diagnosis - Threatened kb Followup: kb - With: Emergency Department - When: As needed - Reason: Worsening of condition Followup: kb - With: Private Physician - When: 2 - 3 days - Reason: Recheck today's complaints, Continuance of care, Re-evaluation by your physician Discharge Instructions: - Discharge Summary Sheet kb - Threatened Miscarriage, [id number] kb Forms: - Work release form kb - Medication Reconciliation Form kb - Antibiotic Education kb - Prescription Opioid Use kb - Patient Portal Instructions kb - Leadership Thank You Letter kb Signatures: Dispatcher [employer] EDVania Eid, RENTAL CAR DELIVERER-C RENTAL CAR DELIVERER-Ckb Trang Regalado, RN RN Joel Murry DO DO ms3 Julia Leiva RN RN kc6 Alvarado Pepe, RENTAL CAR DELIVERER-C RENTAL CAR DELIVERER-Cdr5 Corrections: (The following items were deleted from the chart) 16:12 16:11 Allergies: Amoxicillin; [facility] 16:12 16:11 Home Meds: Unable to obtain; [facility]
--- NOTE | 2024-07-01 18:25 | ER ---
Nurse's Notes [facility] Name: Nancy Love Age: 19 yrs Sex: Female : 2005 Arrival Date: 07/01/2024 Time: 15:51 Bed 11 Private MD: Diagnosis: Threatened Presentation: 07/01 16:10 Chief complaint: Patient states: thick brown bleeding with clots, she had a miscarriage iw in April. Coronavirus screen: At this time, the client does not indicate any symptoms associated with coronavirus-19. Ebola Screen: No symptoms or risks identified at this time. 16:10 Method Of Arrival: Ambulatory iw 16:10 Acuity: PARTHA 3 iw 16:12 Risk Assessment: Do you want to hurt yourself or someone else? Patient reports no iw desire to harm self or others. 17:39 Initial Sepsis Screen: Does the patient meet any 2 criteria? No. Patient's initial kc6 sepsis screen is negative. Does the patient have a suspected source of infection? No. Patient's initial sepsis screen is negative. Onset of symptoms was April 2024. Historical: - Allergies: 16:11 No Known Allergies; iw - Home Meds: 16:11 None [Active]; iw - PSHx: 16:11 Tonsillectomy; iw - Immunization history:: Adult Immunizations up to date. - Infectious Disease History:: Denies. - Social history:: Smoking status: unknown. Screenin:39 [facility] ED Fall Risk Assessment (Adult) History of falling in the last 3 months, kc6 including since admission No falls in past 3 months (0 pts) Confusion or Disorientation No (0 pts) Intoxicated or Sedated No (0 pts) Impaired Gait No (0 pts) Mobility Assist Device Used No (0 pt) Altered Elimination No (0 pt) Score/Fall Risk Level 0 - 2 = Low Risk Oriented to surroundings, Maintained a safe environment, Educated pt \T\ family on fall prevention, incl call for assistance when getting out of bed. Abuse screen: Denies threats or abuse. Denies injuries from another. Nutritional screening: No deficits noted. Tuberculosis screening: No symptoms or risk factors identified. Assessment: 17:37 General: Appears in no apparent distress. comfortable, obese, well groomed, well kc6 developed, Behavior is calm, cooperative, appropriate for age. Pain: Complains of pain in pelvis Quality of pain is described as crampy, dull. Neuro: Level of Consciousness is awake, alert, obeys commands, Oriented to person, place, time, situation, Appropriate for age. Cardiovascular: Capillary refill < 3 seconds. Respiratory: Airway is patent Trachea midline Respiratory effort is even, unlabored, Respiratory pattern is regular, symmetrical. GI: Abdomen is round non-distended, obese, Bowel sounds present X 4 quads. Abd is soft X 4 quads Reports lower abdominal pain, cramping, Patient currently denies diarrhea, nausea, vomiting. : Urine is clear, Reports cramping, vaginal bleeding that is bright red, with clots, moderate flow, since April. EENT: No signs and/or symptoms were reported regarding the EENT system. Derm: No signs and/or symptoms reported regarding the dermatologic system. Skin is intact, is healthy with good turgor, Skin is pink, warm \T\ dry. Musculoskeletal: No signs and/or symptoms reported regarding the musculoskeletal system. Circulation, motion, and sensation intact. Range of motion: intact in all extremities. 18:34 Reassessment: Patient appears in no apparent distress at this time. No changes from kc6 previously documented assessment. Patient and/or family updated on plan of care and expected duration. Pain level reassessed. Patient is alert, oriented x 3, equal unlabored respirations, skin warm/dry/pink. Vital Signs: 16:12 BP 157 / 108; Pulse 56; Resp 16; Temp 98.7(O); Pulse Ox 100% on R/A; Weight 104.33 kg; iw Height 5 ft. 2 in. ; 18:34 BP 138 / 72; Pulse 55; Resp 18 S; Pulse Ox 96% on R/A; kc6 16:12 Body Mass Index 42.07 (104.33 kg, 157.48 cm) iw ED Course: 15:54 Patient arrived in ED. im 16:00 Alvarado Pepe FNP-C is PHCP. dr5 16:11 Triage completed. iw 16:37 Arm band placed on Patient placed in an exam room, on a stretcher. ll1 16:51 PHCP role handed off by Alvarado Pepe FNP-C kb 16:51 Vania Glez FNP-C is PHCP. kb 16:51 Joel Murry DO is Attending Physician. kb 17:05 US Transvaginal Ob In Process Unspecified. EDMS 17:22 Julia Leiva, RN is Primary Nurse. kc6 17:23 Inserted saline lock: 20 gauge in right antecubital area, using aseptic technique. kc6 Blood collected. Flushed with 10 mL NS. 17:39 Patient has correct armband on for positive identification. Bed in low position. Call kc6 light in reach. Side rails up X 1. Adult w/ patient. Pulse ox on. NIBP on. Door closed. Noise minimized. Lights dimmed. Pillow given. Verbal reassurance given. 17:39 Patient maintains SpO2 saturation greater than 95% on room air. kc6 18:35 No provider procedures requiring assistance completed. IV discontinued, intact, kc6 bleeding controlled, No redness/swelling at site. Pressure dressing applied. Administered Medications: No medications were administered Medication: 18:35 VIS not applicable for this client. kc6 Outcome: 18:24 Discharge ordered by MD. kb 18:35 Discharged to home ambulatory, with family, kc6 18:35 Condition: good 18:35 Discharge instructions given to patient, Instructed on discharge instructions, follow up and referral plans. Demonstrated understanding of instructions, follow-up care, 18:35 Patient left the ED. kc6 Signatures: Dispatcher [employer] EDMS Vania Glez, WEB DEVELOPER-C WEB DEVELOPER-Ckb Trang Regalado RN RN iw Cassidy Cooper RN RN ll1 Julia Leiva, MARCELINA RN kc6 Melony Ramirez Dustin, WEB DEVELOPER-C WEB DEVELOPER-Cdr5 Corrections: (The following items were deleted from the chart) 16:12 16:11 Allergies: Amoxicillin; iw iw 16:12 16:11 Home Meds: Unable to obtain; iw iw 16:12 16:12 BP 157 / 108; Pulse 56bpm; Resp 16bpm; Pulse Ox 100% RA; iw iw 16:13 16:12 BP 157 / 108; Pulse 56bpm; Resp 16bpm; Pulse Ox 100% RA; Temp 98.7F Oral; iw iw
[2024-07-01 19:17] VITALS: TEMP 98.7
[2024-07-01 19:18] VITALS: BP 138/72; O2SAT 96
== END 2024-07-01 18:35 | disposition home or self-care (01) ==
LOC: ER 15:51
DX: O20.0 Threatened abortion (principal)
CPT/HCPCS: 36415; 76817; 80048; 81001; 81025; 84702; 85025; 86900; 86901; 99284